=== PATIENT | male | born 1960 | race Caucasian/White ===

== ENCOUNTER → 2019-11-22 08:13 | Outpatient (CLI) | payer OTHER ==
[~2019-11-22 08:13] MED LIST: CHLORTHALIDONE25 MG PO; EDARBI40 MG PO; MOBIC7.5 MG PO; ZYLOPRIM300 MG PO
[2019-11-23 07:53] VITALS: BMI 30.7
== END | disposition home or self-care (01) ==
LOC: D.MRI 11-21 15:30
PROVIDERS: ATTEND Orthopaedic Surgery
DX: M66.862 Spontaneous rupture of other tendons, left lower leg (principal)

== ENCOUNTER 2019-11-23 06:09 | Day surgery (SDC) | payer OTHER ==
[~2019-11-23] VITALS: Ht 180.3 cm; Wt 100.0 kg
[2019-11-23 06:43] LABS: HEMATOCRIT 48.8 % (42.0-54.0); MCH 31.8 pg (26.0-34.0); MCHC 34.8 g/dL (31.0-37.0); MCV 91.4 fL (80.0-100.0); MEAN PLATELET VOLUME 9.1 fL (7.4-10.4); RBC 5.34 10x6/uL (4.20-6.10); RDW 13.2 % (11.5-14.5); WBC 5.8 10x3/uL (4.8-10.8)
[2019-11-23 07:10] LABS: CALC OSMOLALITY 270 mosm/kg (275-300); CALCIUM 8.8 mg/dL (8.5-10.1); CARBON DIOXIDE 28.1 mmol/L (21.0-32.0); CHLORIDE - SERUM 98 mmol/L (98-107); CREATININE - SERUM 0.9 mg/dL (0.6-1.3); GLUCOSE 107 mg/dL (74-106); POTASSIUM - SERUM 4.1 mmol/L (3.5-5.1); SODIUM 135 mmol/L (136-145); UREA NITROGEN 15 mg/dL (7-18); eGFR NON AFRICAN AMERICAN > 90 mL/min (90-120)
[2019-11-23 07:53] VITALS: BP 130/96; Ht 180.3 cm; Wt 100.0 kg
--- NOTE | 2019-11-23 12:25 | NUR ---
IV D/C'D WITH CANNULA INTACT, PRESSURE APPLIED AND DRSG PLACED. DISCHARGE INSTRUCTIONS GIVEN TO AND PT, BOTH VERBALIZED AN UNDERSTANDING. DISCHARGED HOME IN STABLE CONDITION A W/O COMPLAINT
--- NOTE | 2019-11-24 10:46 | OP ---
PATIENT NAME: EVELYN LAM MEDICAL RECORD: [id number] :62 LOCATION:[facility] ADMISSION DATE: SURGEON: KRISHAN MARTINEZ DO DATE OF OPERATION: 11/23/2019 PROCEDURE PERFORMED: Left Achilles tendon repair. PREOPERATIVE DIAGNOSIS: Left Achilles tendon rupture. POSTOPERATIVE DIAGNOSIS: Left Achilles tendon rupture. INDICATION: Mr. Lam is a 59-year-old male who presented to my office with a left Achilles tendon tear. He did have a palpable gap and was even noted on x-ray. I wanted to get an MRI to ensure that it was not up into the muscle belly. Once we finally got approval from his insurance company, that was done and we scheduled the surgery. I informed him of the risks of this including infection, bleeding, nonhealing wound which is a high risk factor for this procedure, retear of the Achilles tendon, and damage to other nerves and vessels in the area, specifically the sural nerve. He was aware of all those risks and blood clots and even and he signed the consent. SURGEON: Krishan Martinez DO DESCRIPTION OF PROCEDURE: The patient was given a block by anesthesia in the preoperative area, taken to the operative suite, given 2 g of Ancef preoperatively, laid in the prone position, an LMA was placed. The left lower extremity was prepped and draped in sterile fashion. Time-out was performed. Everyone was in agreement with the correct site, side, patient, and procedure. I then exsanguinated the left lower extremity and tourniquet was inflated to 350 mmHg and was up for 58 minutes. I made an incision over the gap that was in the mid substance tendon. I made careful dissection down through the paratenon and pulled the proximal portion down. It was quite torn and then put the pars repair jig through and ran the needles through and sutures through the tendon from medial to lateral. I then pulled them through and down and looped the sutures through the loops on either side to make a locking stitch and pulled those down through. I then put 2 holes down in the calcaneus, made 2 incisions and then put with a drill 2 master pilot anchored holes and then with a tap put them in. I then used a device to go up through the distal portion of the tendon with a nitinol wire and then pulled it on each side of the tendon and pulled each of the sutures down that had been ran through the tendon through the pars repair device. These were then brought down through the incisions and I put SwiveLock anchors down into the calcaneus. I had a very nice repair there. I then put a Regeneten patch over the repair site and stapled it into place and then the paratenon was sutured in with Stravix to close over the patch and the tendon. I then closed the skin with a 4-0 Monocryl in an interrupted fashion and a 3-0 nylon in a horizontal mattress fashion. This was done by myself and Beckie Cervantes. The tourniquet was then let down at 58 minutes. Once those were closed, the 2 poke holes for the SwiveLock anchors were then closed with the same 3-0 nylon in a horizontal mattress fashion. He was then dressed with Adaptic, 4 x 4, ABD, Webril, and a plantarflexed splint placed on and secured with an Noe wrap. He was then awakened and taken to recovery room in stable condition. BLOOD LOSS: Minimal. OPERATIVE REPORT [id number] EVELYN LAM COMPLICATIONS: None. NTS:[id number] Voice Confirmation ID: [id number] DOCUMENT ID: [id number] KRISHAN MARTINEZ DO at 1046 CC: [id number] DICTATION DATE: 11/23/19 1339 GATE ATTENDANT: 11/23/19 2347 [facility] 11/23/19 [id number] [place] [address]
== END 2019-11-23 12:15 | disposition home or self-care (01) ==
LOC: D.OPS 06:09 → D.PAN 18:15
PROVIDERS: Anesthesiology; ATTEND Orthopaedic Surgery
DX: S86.012A Strain of left Achilles tendon, initial encounter (principal); X58.XXXA Exposure to other specified factors, initial encounter; I10 Essential (primary) hypertension

== ENCOUNTER 2020-10-07 09:36 | Day surgery (SDC) | payer OTHER ==
[~2020-10-07] VITALS: Ht 180.3 cm; Wt 99.8 kg
[~2020-10-07 09:36] MED LIST changes: +BACTRIM DS TAB1 EAC1 PO; +HYDROCODON-ACE1 EA10 PO; +VALIUM5 MG PO
[2020-10-07 09:56] LABS: BASOPHILS 0.7 % (0-2); EOSINOPHILS 3.9 % (0-7); HEMATOCRIT 42.7 % (42.0-54.0); HEMOGLOBIN 14.1 g/dL (13.5-17.5); LYMPHOCYTES 33.8 % (15-50); MCH 26.1 pg (26.0-34.0); MCHC 32.9 g/dL (31.0-37.0); MCV 79.1 fL (80.0-100.0); MEAN PLATELET VOLUME 6.4 fL (7.4-10.4); MONOCYTES 12.1 % (2-11); NEUTROPHILS 49.5 % (40-80); WBC 4.9 10x3/uL (4.8-10.8)
[2020-10-07 10:02] LABS: CALC OSMOLALITY 265 mosm/kg (275-300); CALCIUM 9.1 mg/dL (8.5-10.1); CARBON DIOXIDE 30.6 mmol/L (21.0-32.0); CHLORIDE - SERUM 96 mmol/L (98-107); GLUCOSE 114 mg/dL (74-106); POTASSIUM - SERUM 3.9 mmol/L (3.5-5.1); SODIUM 133 mmol/L (136-145); UREA NITROGEN 11 mg/dL (7-18); eGFR NON AFRICAN AMERICAN 81 mL/min (90-120)
[2020-10-07 10:14] LABS: PLATELET COUNT 320 10x3/uL (130-400)
[2020-10-07 12:20] VITALS: Ht 180.3 cm; Wt 99.8 kg
--- NOTE | 2020-10-07 16:23 | NUR ---
1400 IV DC'ED BY Radha BEVERLY R.N. PT DRESSING. Ana MCCAULEY R.N. 1410 DRESSED, AWAKE, & ALET. PROVIDED WITH D/C INFORMATION INCLUDING: RX: NORCO 10/325MG, MED REC, RTC APPT., DR. MARTINEZ'S LOWER EXTREMITY POST-OP INSTRUCTIONS, & [facility] D/C INSTRUCTIONS. PT VOICED UNDERSTANDING. TO PRIVATE CAR PER BY STAFF. HOME WITH MALE FRIEND. Ana MCCAULEY R.N.
--- NOTE | 2020-10-08 08:02 | OP ---
PATIENT NAME: EVELYN LAZO MEDICAL RECORD: [id number] :62 LOCATION:[facility] ADMISSION DATE: SURGEON: KRISHAN MARTINEZ DO DATE OF OPERATION: 10/07/2020 PROCEDURE PERFORMED: Left lower extremity incision, debridement with an excisional debridement with cultures. PREOPERATIVE DIAGNOSIS: Abscess of the left lower extremity posterior heel Achilles area. POSTOPERATIVE DIAGNOSIS: Abscess of the left lower extremity posterior heel Achilles area. INDICATIONS: The patient is a 60-year-old male who underwent an Achilles tendon repair approximately more than 6 months ago, at about 7-8 months ago. His wound had dehisced and then in March 2020, I did an I&D with Kerecis application. He had been nursing it along, it slowly healed up, and then started to drain some a couple of weeks ago of purulent fluid. I told him we will do an I&D to ensure that all the infection was out and he was on antibiotics. He is aware of the risks of this, including further infection, bleeding, damage to vessels, need for further surgery, continued pain and he signed a consent. SURGEON: Krishan Martinez D.O. DESCRIPTION OF PROCEDURE: The patient received a block by anesthesia in preoperative area, taken to the operative suite, laid in the right lateral decubitus position with the left foot up. He was given 2 grams of Ancef. The left lower extremity was then prepped and draped in sterile fashion. It was just a regional block. Timeout was performed. Everyone was in agreement with correct side, site, patient and procedure. I then marked out the incision over the abscessed area and then made an incision after testing to make sure he did not feel anything. I then debrided the abscess and all the wounds appeared to be abscessed tissue and there was some suture in it as well and I removed that down to the level of the fascia. I then irrigated, after taking cultures, with about 300 mL of normal saline and then put in the Kerecis micro graft and stuffed it into the wound and then closed with 4-0 Monocryl in a horizontal mattress fashion. I then dressed with Adaptic, 4 x 4s, cast padding, and Noe wrap. He was awakened and taken back to the outpatient in stable condition. BLOOD LOSS: Minimal. COMPLICATIONS: None. TRANSINT:[id number] Voice Confirmation ID: [id number] DOCUMENT ID: [id number] KRISHAN MARTINEZ DO at 0802 CC: [id number] DICTATION DATE: 10/07/20 1326 MACHINE TESTER: 10/07/20 1857 [facility] 10/07/20 [place] [id number] [place] [id number]
== END 2020-10-07 14:10 | disposition home or self-care (01) ==
LOC: D.OPS 09:36
PROVIDERS: Anesthesiology; ATTEND Orthopaedic Surgery
DX: T81.31XD Disruption of external operation (surgical) wound, not elsewhere classified, subsequent encounter (principal)